=== PATIENT | male | born 1970 | race Caucasian/White ===

== ENCOUNTER 2022-05-28 09:37 | Day surgery (SDC) | payer MEDICAID, SELFPAY ==
--- NOTE | 2022-05-27 14:44 | P.CONAN_ITS ---
Documented by User: Jordana Kemp NP 05/27/22 14:45 HPI - Anesthesia Eval Consult details Narrative: 51yo M for Colonoscopy [facility] Past Medical History Medical History (Updated 05/28/22 @ 09:50 by Deedee Craig, [place]) HTN (hypertension) ERICK on CPAP Pneumonia due to COVID-19 virus Ulcerative colitis Surgical History Surgical History H/O colonoscopy H/O parathyroidectomy H/O partial thyroidectomy Social History Social History Patient Tobacco Use Status: Former Tobacco user Quit Date: 25 yr ago Use of substances other than those prescribed or required for medical reasons: Yes Substance Use Frequency: Occasionally Are you DNR?: No Advance Directives: No Advance Directives Information Provided: Yes Meds Allergies Allergy/AdvReac Type Severity Reaction Status Date / Time NSAIDS (Non-Steroidal Allergy Stomach Verified 05/28/22 09:51 Anti-Inflamma Upset blue cheese Allergy Unknown Uncoded 05/27/22 13:00 Home Medications Medication Instructions Recorded Confirmed Last Taken Type azelastine 137 mcg (0.1 %) nasal 2 spray intranasal BID 05/27/22 05/28/22 Unknown History spray aerosol fluticasone propionate 50 2 spray intranasal DAILY 05/27/22 05/28/22 Unknown History mcg/actuation nasal spray,suspension lisinopril 10 mg tablet 1 tab PO DAILY 05/27/22 05/28/22 Unknown History mesalamine 1.2 gram tablet,delayed 2 tab PO DAILY 05/27/22 05/28/22 Unknown History release (Lialda) Exam Exam Date and Time: May 27, [id number] Assessment and Plan Assessment Anesthesia Assessment: Chart Reviewed Documented by User: Osei Meyer MD 05/28/22 10:18 [facility] Past Medical History Medical History (Updated 05/28/22 @ 09:50 by Deedee Craig RN) HTN (hypertension) ERICK on CPAP Pneumonia due to COVID-19 virus Ulcerative colitis Family History Family history of problems with anesthesia: No Surgical History Surgical History H/O colonoscopy H/O parathyroidectomy H/O partial thyroidectomy History of Problems with Anesthesia: No Social History Social History Patient Tobacco Use Status: Former Tobacco user Quit Date: 25 yr ago Use of substances other than those prescribed or required for medical reasons: Yes Substance Use Frequency: Occasionally Are you DNR?: No Advance Directives: No Advance Directives Information Provided: Yes Meds Allergies Allergy/AdvReac Type Severity Reaction Status Date / Time NSAIDS (Non-Steroidal Allergy Stomach Verified 05/28/22 09:51 Anti-Inflamma Upset blue cheese Allergy Unknown Uncoded 05/27/22 13:00 Home Medications Medication Instructions Recorded Confirmed Last Taken Type azelastine 137 mcg (0.1 %) nasal 2 spray intranasal BID 05/27/22 05/28/22 Unknown History spray aerosol fluticasone propionate 50 2 spray intranasal DAILY 05/27/22 05/28/22 Unknown History mcg/actuation nasal spray,suspension lisinopril 10 mg tablet 1 tab PO DAILY 05/27/22 05/28/22 Unknown History mesalamine 1.2 gram tablet,delayed 2 tab PO DAILY 05/27/22 05/28/22 Unknown History release (Lialda) Exam Airway Mallampati Class: II TM Dist: >3cm Neck ROM: Full Loose/Missing/Broken Teeth: No Heart: rrr Lungs: cta Assessment and Plan Final Anesthetic Review Family History of Problems with Anesthesia: No History of Problems with Anesthesia: No NPO: Yes ASA Class: II Final Preanesthetic Review: No Changes in Pt Med Stat, Meds/Allgs Chart Reviewed, Consent Obtained/Reviewed and Anes Risks/Benef Reviewed Patient Risk: Low Procedure Risk: Low Anesthetic Plan Anesthetic Plan: MAC: and Agree w/ Assess. and Plan Disposition: Standard PACU
[2022-05-28 09:52] VITALS: BMI 34.2
[2022-05-28 10:00] VITALS: BP 141/88; PULSE 76; RESP 15; TEMP 36.8; O2SAT 97
[2022-05-28] MEDS: Lactated Ringers 1,000 ML 100 ML IVCONT (10:22)
--- NOTE | 2022-05-28 10:39 | P.HPSUR_ITS ---
Pre-Procedural Eval Section A Date of Service: 05/28/22 Section B Chief Complaint: Ulcerative (chronic) pancolitis without complicati Details of Present Illness: see h&p no changes Relevant Family History (Specify if Yes): No Relevant Social History: None Present Medications: see Short Stay Collaborative assessment Medical History: No relevant PMH (recent L biceps tendon tear) History of Previous Operations: No relevant previous surgery Allergies: Allergies Allergy/AdvReac Type Severity Reaction Status Date / Time NSAIDS (Non-Steroidal Allergy Stomach Verified 05/28/22 09:51 Anti-Inflamma Upset blue cheese Allergy Unknown Uncoded 05/27/22 13:00 Review of Systems Sugical H&P ROS: Negative: Constitution, Cardiovascular, Respiratory, Neurological, Psychiatric, Hem-Onc, Allergic/Immunologic, Gastrointestinal, Genitourinary, Musculoskeletal, Integumentary, Endocrine and Eyes/Ears/Nose/Throat Exam Surgical H&P Exam: Normal: HEENT, Normal: Heart, Normal: Lungs, Normal: Ex tremities, Normal: Abdomen, Normal: Skin and Normal: Neurological Plan Diagnosis/Plan: Unchanged I have reviewed the history and physical and performed a pertinent physical examination on my patient. No changes have occurred unless specified. Time Spent With Patient Time: Total time managing care of this patient today ____ minutes.
[2022-05-28 11:15] VITALS: BP 134/81; PULSE 81; RESP 18; TEMP 36.7; O2SAT 94
--- NOTE | 2022-05-28 11:17 | P.BOP_ITS ---
Brief Operative Note Date of Service: 05/28/22 Pre-op diagnosis: ulcerative colitis Post-op diagnosis: same Procedure: colonoscopy Surgeon: Jairo Durant Anesthesia: MAC Was an Head Screen Worker used for this Procedure?: No Estimated blood loss (mL): 5 Pathology: other Condition: stable Disposition: PACU
[2022-05-28 11:30] VITALS: BP 122/82; PULSE 70; RESP 18; TEMP 36.3; O2SAT 96
--- NOTE | 2022-05-28 22:03 | OP_ITS ---
SURGEON: Jairo Durant MD INDICATIONS: Ulcerative colitis. PREOPERATIVE DIAGNOSIS: POSTOPERATIVE DIAGNOSIS: PROCEDURE PERFORMED: Colonoscopy to the terminal ileum with biopsy. ESTIMATED BLOOD LOSS: COMPLICATIONS: ANESTHESIA: Monitored anesthesia care ASSISTANTS: SPECIMENS: DESCRIPTION OF PROCEDURE: The procedure was performed on 05/28/2022. A history and physical was performed. The risks and benefits of the procedure were explained to the patient. Informed consent was obtained. The patient was placed in the left lateral decubitus position. A digital rectal exam was performed and was found to be normal. The Olympus pediatric video colonoscope was introduced into the rectum and advanced to the cecum without difficulty. The cecum was identified by transillumination, palpation, and identification of ileocecal valve. Examination was performed. The scope was removed. He tolerated the procedure well and was returned to the recovery in stable condition. FINDINGS: The terminal ileum was normal. This was biopsied. The visualized colonic mucosa appeared within normal limits without evidence of masses or ulcers. No polyps were identified. Mucosa showed no changes or active colitis endoscopically. Biopsies were obtained beginning the cecum extending to the rectum approximately 10 cm in all 4 quadrants. Retroflex examination showed some small internal hemorrhoids. IMPRESSION: Ulcerative colitis. RECOMMENDATION: Follow up the biopsy results. MD USHA Arredondo/KARANL / [id number]
== END 2022-05-28 11:53 | disposition home or self-care (01) ==
PROVIDERS: PCP Nurse Practitioner Adult Health; Visit Provider Internal Medicine Gastroenterology
PROC: 0DJD8ZZ Inspection of Lower Intestinal Tract, Via Natural or Artificial Opening Endoscopic (ICD-10-PCS; CPT 45378; principal; 2022-05-28 10:50)
DX: K51.90 Ulcerative colitis, unspecified, without complications (principal); I10 Essential (primary) hypertension; G47.33 Obstructive sleep apnea (adult) (pediatric); Z86.16 Personal history of COVID-19; Z79.899 Other long term (current) drug therapy; Z99.89 Dependence on other enabling machines and devices
CPT/HCPCS: 45380; 88305